=== PATIENT | male | born 1950 | race Caucasian/White ===

== ENCOUNTER 2018-07-26 19:15 | Emergency (ER) | payer OTHER ==
[~2018-07-26] VITALS: Ht 170.2 cm; Wt 53.5 kg
[2018-07-26 19:20] VITALS: BP_SYST 148
[2018-07-26] MEDS ORDERED: NACL 0.9% 1,000 ML IV ONE (20:23)
[2018-07-26] MEDS ORDERED: MORPHINE 4 MG/ML INJ. SYRINGE IVP ONE (20:30)
[2018-07-26] MEDS ORDERED: KETOROLAC TROMETHAMINE 30 MG VIAL IVP ONE (20:30)
[2018-07-26 20:58] LABS: BASOPHILS # (AUTO) 0.1 K/uL (0.0-0.2); BASOPHILS % (AUTO) 0.9 % (0.0-2.0); EOSINOPHILS # (AUTO) 0.1 K/uL (0.0-0.4); EOSINOPHILS % (AUTO) 0.9 % (0.0-4.0); HEMATOCRIT 43.1 % (36-54); HEMOGLOBIN 13.8 g/dL (14.0-18.0); LYMPHOCYTES # (AUTO) 2.2 K/uL (1.0-5.5); LYMPHOCYTES % (AUTO) 21.9 % (20.5-51.5); MEAN CORPUSCULAR HEMOGLOBIN 28 pg (27-31); MEAN CORPUSCULAR HGB CONC 32 % (32-36); MEAN CORPUSCULAR VOLUME 86 fL (79.0-98.0); MONOCYTES # (AUTO) 0.7 K/uL (0.0-1.0); MONOCYTES % (AUTO) 6.5 % (1.7-9.3); NEUTROPHILS # (AUTO) 7.1 K/uL (1.8-7.7); NEUTROPHILS % (AUTO) 69.8 % (40.0-70.0); PLATELET COUNT (AUTO) 268 K/uL (130-430); RED BLOOD CELL COUNT(AUTO) 5.02 MIL/uL (4.2-6.2); WHITE BLOOD COUNT (AUTO) 10.2 K/uL (4.8-10.8)
[2018-07-26 21:00] LABS: CALCIUM 9.3 mg/dL (8.4-11.0); CREATININE 1.49 mg/dL (0.55-1.30); POTASSIUM 4.2 mmol/L (3.5-5.1)
[2018-07-26 21:05] LABS: ALBUMIN 3.6 g/dL (3.4-4.8); TOTAL BILIRUBIN 1.3 mg/dL (0.0-1.0)
[2018-07-26 23:24] VITALS: BP_SYST 134
== END 2018-07-26 23:24 | disposition home or self-care (01) ==
LOC: SED 19:15
DX: N20.1 Calculus of ureter (principal); M10.9 Gout, unspecified
CPT/HCPCS: 36415; 74176; 80053; 85025; 96361; 96374; 96375; 99285; J1885; J2270; J7030

== ENCOUNTER 2022-07-03 16:44 | Observation (INO) | payer OTHER ==
[~2022-07-03] VITALS: Ht 170.2 cm; Wt 97.3 kg
[2022-07-03 16:45] VITALS: BP_SYST 155
--- NOTE | 2022-07-03 17:05 | NUR ---
Placed in room 4 . Placed on panel monitor, blood pressure machine and pulse oximeter. To gown for exam. Side rails up. Report given to ALISON BARROS.
--- NOTE | 2022-07-03 17:10 | NUR ---
Dr Da Silva was at bedside evaluating Pt.
--- NOTE | 2022-07-03 17:26 | NUR ---
Pt arrived to ED by roommate C/O tightness in the chest, with pain. Pt is Awake and Alert AO x4, no SOB or distress. PT STATED THE PAIN OCCURED ABOUT 2 DAYS AGO AT LUNCH. Pt denied any N/V and rate the pain in his chest to be 2/10. PERRLA, Cap refill <3 sec, skin warm and dry. VSS
[2022-07-03] MEDS ORDERED: ASPIRIN 81 MG TAB.CHEW PO ONE (17:30)
[2022-07-03 17:37] LABS: BASOPHILS % (AUTO) 0.3 % (0.0-2.0); RED BLOOD CELL COUNT(AUTO) 5.44 MIL/uL (4.2-6.2)
--- NOTE | 2022-07-03 17:38 | NUR ---
COVID-19 JOSE TEST TAKEN, LABELED, AND DROPPED OFF TO LAB.
[2022-07-03 17:44] LABS: ANION GAP 6 (5-15); CALCIUM 9.6 mg/dL (8.4-11.0); CHLORIDE 103 mmol/L (98-107); GLUCOSE 97 mg/dL (70-99); POTASSIUM 4.4 mmol/L (3.5-5.1); SODIUM SERUM 139 mmol/L (136-145); UREA NITROGEN, BLOOD 18 mg/dL (8-21)
[2022-07-03 17:49] LABS: EOSINOPHILS # (AUTO) 0.1 K/uL (0.0-0.4); EOSINOPHILS % (AUTO) 0.7 % (0.0-4.0); HEMATOCRIT 45.5 % (36-54); LYMPHOCYTES # (AUTO) 2.7 K/uL (1.0-5.5); LYMPHOCYTES % (AUTO) 30.7 % (20.5-51.5); MEAN CORPUSCULAR VOLUME 84 fL (79.0-98.0); MONOCYTES # (AUTO) 0.5 K/uL (0.0-1.0); MONOCYTES % (AUTO) 5.5 % (1.7-9.3); NEUTROPHILS # (AUTO) 5.5 K/uL (1.8-7.7); NEUTROPHILS % (AUTO) 62.8 % (40.0-70.0); PLATELET COUNT (AUTO) 248 K/uL (130-430); RED CELL DISTRIBUTION WIDTH 14.5 % (9.0-15.0); WHITE BLOOD COUNT (AUTO) 8.7 K/uL (4.8-10.8)
[2022-07-03 17:55] LABS: ALANINE AMINOTRANSFERASE 26 U/L (12-78); ALBUMIN 3.5 g/dL (3.4-4.8); ASPARTATE AMINOTRANSFERASE 23 U/L (10-37); TOTAL BILIRUBIN 1.2 mg/dL (0.0-1.0)
[2022-07-03 17:59] LABS: GFR AFRICAN AMERICAN 60 mL/min (>90)
--- NOTE | 2022-07-03 20:06 | NUR ---
Admit bed requested Patient will be admitted to care of Dr Muro.. Admitted to Tele unit. Diagnosis chest pain Inpatient (Yes or No) Yes Observation (Yes or No) No Orientation concerns or request close to nursing station (Yes or No) No Covid Status negative On vent or bipap N/A Isolation requirements N/A Needs a sitter n/a From Home (Yes or if No enter name of facility) YES Requires Dialysis (Yes or No) No Med Rec Completed (Yes of No) Yes
--- NOTE | 2022-07-03 20:08 | NUR ---
Pt A&Ox4, VSS, respirations even and unlabored
--- NOTE | 2022-07-03 21:33 | NUR ---
Patient will be admitted to care of Dr Muro . Admitted to tele unit. Will go to room 128A . Belongings list completed. Complete and up to date summary report printed. SBAR report to be given at bedside with opportunity for questions.
--- NOTE | 2022-07-03 21:35 | NUR ---
ADMISSION NOTE Received patient from ER via gurney, received report from Siva RN. Patient admitted with diagnosis of Chest pain. Patient oriented to hospital routine, call light, toileting and safety-patient verbalized understanding. Assessment completed, tele monitor verified for corect patient, and inventory list is completed.
[2022-07-03 21:45] VITALS: BP_SYST 115
[2022-07-03] MEDS ORDERED: ALLO100T PO (22:29)
--- NOTE | 2022-07-04 01:19 | NUR ---
Consultation Paged Reason for Consultation: Chest Pain Was consult called: Y Person who was notified: Lucila Consulting Physician: Pascual Jim Ordering Physician: Juliana Husain
[2022-07-04 02:00] VITALS: BP_SYST 111
[2022-07-04 08:16] VITALS: BP_SYST 128
[2022-07-04 12:00] VITALS: BP_SYST 121
[2022-07-04 18:16] VITALS: BP_SYST 124
[2022-07-04 20:00] VITALS: BP_SYST 117
--- NOTE | 2022-07-04 20:21 | NUR ---
OPENING NOTES: Patient received from AM shift. Patient is AA&Ox4 able to make needs known and denies any pain or distress at this time. Chest rise is even and unlabored on 2L via NC and is on tele monitoring. BS are active x4 no distention is noted and denies pain with palpation. PIV is noted on R wrist patent and infusing with no s/s of infiltration. Patient is currently stable at this time. Safety measures are currently in place and patient has call light within reach. Will resume care and continue to monitor throughout the shift. Addendum: 07/04/22 at 2023 by Elham Alvarado RN RN Patient is on RA and tolerating it well PIV to RAC patent and intact no s/s of infiltration noted.
[2022-07-05] VITALS: BP_SYST 117
--- NOTE | 2022-07-05 00:30 | NUR ---
PATIENT RESTING: Patient resting quietly. No acute distress noted. Vital signs within normal range. Patient is now NPO since midnight as ordered and will have a cardiac stress test this morning.
--- NOTE | 2022-07-05 06:39 | NUR ---
CLOSING NOTES: Patient is in bed resting no s/s of distress is noted at this time. Patient is able to verbalize needs and has call light within reach. Patient is NPO and is pending a stress test. Patient is stable at this time and safety measures are in place as per protocol. Will differ care to AM shift nurse for continuity of care.
[2022-07-05 07:50] VITALS: BP_SYST 126
--- NOTE | 2022-07-05 10:32 | NUR ---
0730 Pt. in bed, aaox4, npo for stress test this am. Vss, sloan cp, call light in reach, sr on monitor
[2022-07-05 11:22] VITALS: BP_SYST 119
[2022-07-05 14:35] VITALS: BP_SYST 130
--- NOTE | 2022-07-05 14:55 | NUR ---
1500 Pt. going home, vss, dc instructions gone over with pt. and he verbalized understanding, all belongings accounted for. Jimy dc'd with canula intact. Ambulated with staff to outside of hospital, no distress noted.
== END 2022-07-05 14:55 | disposition home or self-care (01) ==
LOC: SED 16:44 → STU 19:52 → INTOOBSV 19:52 → STU 21:17
PROVIDERS: ADMIT Internal Medicine; ATTEND Internal Medicine
DX: R07.89 Other chest pain (principal); Z20.822 Contact with and (suspected) exposure to COVID-19; N18.31 Chronic kidney disease, stage 3a; M10.9 Gout, unspecified; Z79.899 Other long term (current) drug therapy
CPT/HCPCS: 80053; 83880; 85025; 84484; 36415; 93005 ×2; 71045; 99285; 87426; 93306; G0378 ×2